=== PATIENT | male | born 1975 | race Caucasian/White ===

== ENCOUNTER 2021-03-09 20:01 | Emergency (ER) | payer SELFPAY ==
[~2021-03-09] VITALS: Ht 182.8 cm; Wt 104.3 kg
[2021-03-09] MEDS ORDERED: ZOLOFT100 MG PO (20:11)
[2021-03-09] MEDS ORDERED: CEPHALEXIN500 M1 PO (21:40)
== END 2021-03-09 21:06 | disposition home or self-care (01) ==
LOC: ED 20:01
DX: S81.812A Laceration without foreign body, left lower leg, initial encounter (principal); F17.200 Nicotine dependence, unspecified, uncomplicated; Z79.899 Other long term (current) drug therapy; W26.8XXA Contact with other sharp object(s), not elsewhere classified, initial encounter; Y93.89 Activity, other specified; Y92.89 Other specified places as the place of occurrence of the external cause; Y99.8 Other external cause status